=== PATIENT | male | born 1960 | race African-American/Black ===

== ENCOUNTER 2021-11-12 18:30 | Inpatient (IN) | payer OTHER ==
[2021-11-12] MEDS ORDERED: NALOXONE HCL 0.4 MG/ML VIAL ONE (18:39)
[2021-11-12 18:55] VITALS: BMI 26.2
[2021-11-12] MEDS ORDERED: NALOXONE HCL 0.4 MG/ML VIAL IVPUSH ONE (19:01)
[2021-11-12] MEDS ORDERED: LORazepam 2 MG/ML SDV VIAL IVPUSH ONE (19:48)
[2021-11-12 19:59] LABS: BASO % 0.6 % (0-2.0); EOS % 0.8 % (0-4.5); HEMOGLOBIN 13.5 GM/dL (11.7-16.9); LYMPH % 19.4 % (8-40); MCH 27.5 pg (25.7-33.7); MCHC 31.5 g/dl (32.0-35.9); MEAN CELL VOLUME 87.5 fl (80-96); MEAN PLT VOLUME 8.2 fl (7.5-11.1); MONO % 4.9 % (3.8-10.2); NEUT % 74.3 % (42.8-82.8); PLATELET COUNT 324 10^3/uL (134-434); RBC 4.91 M/mm3 (4.00-5.60); RDW 15.2 % (11.9-15.9); WHITE BLOOD COUNT 14.7 K/mm3 (4.0-10.0)
[2021-11-12 20:11] LABS: INR 0.97 (0.83-1.09); PROTHROMBIN TIME (PATIENT) 11.2 SEC (9.7-13.0)
[2021-11-12 20:20] LABS: CHLORIDE 104 mmol/L (98-107); SODIUM 139 mmol/L (136-145)
[2021-11-12 20:23] LABS: ALBUMIN 4.3 g/dl (3.4-5.0); ANION GAP 16 MMOL/L (8-16); CALCIUM 9.9 mg/dL (8.5-10.1); CO2 18 mmol/L (21-32)
[2021-11-12 20:24] LABS: GLUCOSE,RANDOM 155 mg/dL (74-106)
[2021-11-12 20:25] LABS: ACTIVATED PTT 18.4 SECONDS (25.2-36.5)
[2021-11-12 20:26] LABS: CREATININE 1.5 mg/dL (0.55-1.3); SGPT/ALT 21 U/L (13-61)
[2021-11-12 20:27] LABS: SGOT/AST 21 U/L (15-37)
[2021-11-12 20:28] LABS: CHOLESTEROL 200 mg/dL (50-200); TOT PROT 8.6 g/dl (6.4-8.2); TRIGLYCERIDES 178 mg/dL (0-150)
[2021-11-12 20:29] LABS: BILIRUBIN,TOTAL 0.5 mg/dL (0.2-1); LDL CHOLESTEROL (ONLY SJRH) 104 mg/dL (5-100)
[2021-11-12 20:30] LABS: ALK PHOS 74 U/L (45-117)
[2021-11-12 20:31] LABS: HDL CHOLESTEROL 59 mg/dL (40-60)
[2021-11-12 22:47] LABS: EPI CELLS 8 /uL (0-25.1); HYALINE CASTS 1 /uL (0-3.1); URINE APPEARANCE CLEAR; URINE BACTERIA 23 /uL (0-1359); URINE BILIRUBIN NEGATIVE (NEGATIVE); URINE COLOR YELLOW; URINE GLUCOSE (UA) NEGATIVE (NEGATIVE); URINE KETONE NEGATIVE (NEGATIVE); URINE LEUK ESTERASE NEGATIVE (NEGATIVE); URINE NITRITE NEGATIVE (NEGATIVE); URINE PROTEIN 1+ (NEGATIVE); URINE RBC 4 /uL (0-23.9); URINE UROBILINOGEN 0.2 mg/dL (0.2-1.0); URINE WBC 12 /uL (0-25.8)
[2021-11-12 22:55] LABS: METHADONE, UR NEGATIVE (NEGATIVE)
[2021-11-12 22:56] LABS: COCAINE, UR NEGATIVE (NEGATIVE); OPIATES, URI NEGATIVE (NEGATIVE); PHENCYCLIDINE,URINE NEGATIVE (NEGATIVE)
[2021-11-12 23:02] LABS: URINE AMPHETAMINES NEGATIVE (NEGATIVE); URINE BARBITURATES NEGATIVE (NEGATIVE); URINE BENZODIAZEPINES POSITIVE (NEGATIVE)
[2021-11-13] MEDS ORDERED: amLODIPine BESYLATE 2.5 MG TABLET (FP) PO ONE (00:59)
[2021-11-13] MEDS ORDERED: HEPARIN NA (PORCINE) 5,000 UNITS/ML 1ML VIAL SQ SCH (06:00)
[2021-11-13] MEDS ORDERED: HEPARIN NA (PORCINE) 5,000 UNITS/ML 1ML VIAL ONE (06:26)
[2021-11-13] MEDS ORDERED: amLODIPine BESYLATE 5 MG TABLET (FP) ONE (06:26)
[2021-11-13 06:45] LABS: BASO % 0.5 % (0-2.0); EOS % 0.4 % (0-4.5); HEMATOCRIT 38.2 % (35.4-49); HEMOGLOBIN 12.6 GM/dL (11.7-16.9); MCH 28.3 pg (25.7-33.7); MCHC 32.9 g/dl (32.0-35.9); MEAN CELL VOLUME 86.2 fl (80-96); MEAN PLT VOLUME 7.7 fl (7.5-11.1); MONO % 6.8 % (3.8-10.2); NEUT % 78.3 % (42.8-82.8); PLATELET COUNT 270 10^3/uL (134-434); RBC 4.43 M/mm3 (4.00-5.60); WHITE BLOOD COUNT 13.8 K/mm3 (4.0-10.0)
[2021-11-13 07:04] LABS: CALCIUM 9.3 mg/dL (8.5-10.1)
[2021-11-13 07:05] LABS: ALBUMIN 3.8 g/dl (3.4-5.0); BLOOD UREA NITROGEN 13.1 mg/dL (7-18)
[2021-11-13 07:07] LABS: PHOSPHOROUS 3.4 mg/dL (2.5-4.9)
[2021-11-13 07:08] LABS: CREATININE 1.2 mg/dL (0.55-1.3)
[2021-11-13 07:09] LABS: BILIRUBIN,TOTAL 1.2 mg/dL (0.2-1); TOT PROT 7.8 g/dl (6.4-8.2)
[2021-11-13 07:11] VITALS: TEMP 99
[2021-11-13] MEDS ORDERED: FUROSEMIDE 40 MG TABLET (FP) ONE (09:37)
[2021-11-13] MEDS ORDERED: amLODIPine BESYLATE 10 MG TABLET (FP) ONE (09:37)
[2021-11-13] MEDS ORDERED: SPIRONOLACTONE 25 MG TABLET ONE (09:38)
[2021-11-13] MEDS ORDERED: CLOPIDOGREL BISULFATE 75 MG TABLET (FP) ONE (09:38)
[2021-11-13] MEDS ORDERED: ENOXAPARIN NA (PORCINE) 40 MG/0.4 ML DISP.SYRIN SQ SCH (10:00)
[2021-11-13] MEDS ORDERED: SPIRONOLACTONE 25 MG TABLET PO SCH (10:00)
[2021-11-13] MEDS ORDERED: SACUBITRIL/VALSARTAN 49 MG-51 MG TABLET PO SCH (10:00)
[2021-11-13] MEDS ORDERED: CLOPIDOGREL BISULFATE 75 MG TABLET (FP) PO SCH (10:00)
[2021-11-13] MEDS ORDERED: amLODIPine BESYLATE 10 MG TABLET (FP) PO SCH (10:00)
[2021-11-13] MEDS ORDERED: ASPIRIN 81 MG CHEWABLE TABLETS PO SCH (10:00)
[2021-11-13] MEDS ORDERED: FUROSEMIDE 40 MG TABLET (FP) PO SCH (10:00)
[2021-11-13 11:20] VITALS: BP 138/98; PULSE 79; RESP 16
[2021-11-13] MEDS ORDERED: ATORVASTATIN CA 40 MG TABLET (FP) PO SCH (22:00)
== END 2021-11-13 11:33 | disposition home or self-care (01) | DRG 351 ==
LOC: JER 18:30 → JERBED 22:28
PROVIDERS: ADMIT Internal Medicine; ATTEND Nurse Practitioner Acute Care
DX: R29.898 Other symptoms and signs involving the musculoskeletal system (principal); I50.42 Chronic combined systolic (congestive) and diastolic (congestive) heart failure; I11.0 Hypertensive heart disease with heart failure; E78.5 Hyperlipidemia, unspecified; F10.20 Alcohol dependence, uncomplicated; R20.0 Anesthesia of skin; I25.10 Atherosclerotic heart disease of native coronary artery without angina pectoris; Z98.61 Coronary angioplasty status
CPT/HCPCS: 36415; 70450-TC; 70496-TC; 70498-TC; 70551-TC; 71045-TC-FY; 80053; 80061; 80307; 81003; 82550; 82553; 82962; 83036; 83735; 84100; 84484; 85025; 85610; 85730; 86850; 86900; 86901; 93005; 93010; 99291; 99292; C9803-CS; J1644; Q9967; U0003; U0005

== ENCOUNTER 2022-01-24 16:19 | Observation (INO) | payer OTHER ==
[2022-01-24] MEDS ORDERED: SODIUM CHLORIDE 1,000 ML IV SCH (16:30)
[2022-01-24 17:46] LABS: BASO % 0.6 % (0-2.0); EOS % 0.3 % (0-4.5); HEMATOCRIT 38.8 % (35.4-49); HEMOGLOBIN 12.5 GM/dL (11.7-16.9); LYMPH % 13.7 % (8-40); MCH 28.3 pg (25.7-33.7); MCHC 32.3 g/dl (32.0-35.9); MEAN CELL VOLUME 87.6 fl (80-96); MEAN PLT VOLUME 7.8 fl (7.5-11.1); MONO % 6.4 % (3.8-10.2); PLATELET COUNT 303 10^3/uL (134-434); RBC 4.43 M/mm3 (4.00-5.60); RDW 14.9 % (11.9-15.9); WHITE BLOOD COUNT 10.8 K/mm3 (4.0-10.0)
[2022-01-24 17:53] LABS: INR 1.17 (0.83-1.09); PROTHROMBIN TIME (PATIENT) 13.5 SEC (9.7-13.0)
[2022-01-24 17:56] LABS: ACTIVATED PTT 34.5 SECONDS (25.2-36.5)
[2022-01-24] MEDS ORDERED: LORazepam 2 MG/ML SDV VIAL IVPUSH ONE (18:02)
[2022-01-24] MEDS ORDERED: levETIRAcetam 500 MG/5 ML INJECTION VIAL IVPB ONE ×2 (18:03→18:04)
[2022-01-24 18:06] LABS: CALCIUM 9.3 mg/dL (8.5-10.1)
[2022-01-24 18:07] LABS: ALBUMIN 4.2 g/dl (3.4-5.0)
[2022-01-24 18:09] LABS: CREATININE 1.3 mg/dL (0.55-1.3)
[2022-01-24 18:11] LABS: TOT PROT 8.2 g/dl (6.4-8.2)
[2022-01-24 20:38] LABS: PH,URINE >= 9.0 (5.0-8.0); URINE APPEARANCE CLEAR; URINE BILIRUBIN NEGATIVE (NEGATIVE); URINE COLOR YELLOW; URINE GLUCOSE (UA) NEGATIVE (NEGATIVE); URINE KETONE NEGATIVE (NEGATIVE); URINE LEUK ESTERASE NEGATIVE (NEGATIVE); URINE NITRITE NEGATIVE (NEGATIVE); URINE PROTEIN NEGATIVE (NEGATIVE)
[2022-01-24] MEDS ORDERED: ASPIRIN 81 MG CHEWABLE TABLETS PO SCH (21:15)
[2022-01-24] MEDS ORDERED: ATORVASTATIN CA 80 MG TABLET (FP) PO SCH (22:00)
[2022-01-24] MEDS: CLOPIDOGREL BISULFATE 75 MG TABLET (FP) PO SCH (22:30)
[2022-01-24] MEDS ORDERED: CLOPIDOGREL BISULFATE 75 MG TABLET (FP) ONE ×2 (23:14)
[2022-01-24] MEDS ORDERED: ATORVASTATIN CA 80 MG TABLET (FP) ONE (23:14)
[2022-01-24] MEDS ORDERED: ASPIRIN 81 MG CHEWABLE TABLETS ONE (23:14)
[2022-01-25 02:43] VITALS: BMI 24.8
[2022-01-25] MEDS ORDERED: LORazepam 2 MG/ML SDV VIAL IVPUSH PRN ×2 (07:00→09:32)
[2022-01-25 08:08] LABS: COCAINE, UR NEGATIVE (NEGATIVE); METHADONE, UR NEGATIVE (NEGATIVE); OPIATES, URI NEGATIVE (NEGATIVE); URINE AMPHETAMINES NEGATIVE (NEGATIVE); URINE BARBITURATES NEGATIVE (NEGATIVE)
[2022-01-25 08:09] LABS: PHENCYCLIDINE,URINE NEGATIVE (NEGATIVE)
[2022-01-25 08:30] LABS: URINE BENZODIAZEPINES NEGATIVE (NEGATIVE)
[2022-01-25 09:54] LABS: INR 1.14 (0.83-1.09); PROTHROMBIN TIME (PATIENT) 13.1 SEC (9.7-13.0)
[2022-01-25 09:57] LABS: ACTIVATED PTT 31.8 SECONDS (25.2-36.5)
[2022-01-25 09:59] LABS: BASO % 0.4 % (0-2.0); EOS % 1.1 % (0-4.5); HEMATOCRIT 36.1 % (35.4-49); HEMOGLOBIN 11.6 GM/dL (11.7-16.9); LYMPH % 19.8 % (8-40); MCHC 32.3 g/dl (32.0-35.9); MEAN CELL VOLUME 86.8 fl (80-96); MEAN PLT VOLUME 7.9 fl (7.5-11.1); MONO % 7.7 % (3.8-10.2); PLATELET COUNT 298 10^3/uL (134-434); RBC 4.15 M/mm3 (4.00-5.60); RDW 14.9 % (11.9-15.9); WHITE BLOOD COUNT 11.6 K/mm3 (4.0-10.0)
[2022-01-25] MEDS: CLOPIDOGREL BISULFATE 75 MG TABLET (FP) PO SCH (10:03)
[2022-01-25] MEDS: levETIRAcetam 500 MG/5 ML INJECTION VIAL IVPB SCH ×2 (10:03→10:04)
[2022-01-25 10:11] LABS: ALBUMIN 3.7 g/dl (3.4-5.0); CALCIUM 9.4 mg/dL (8.5-10.1)
[2022-01-25 10:12] LABS: BLOOD UREA NITROGEN 14.3 mg/dL (7-18)
[2022-01-25 10:15] LABS: CREATININE 1.2 mg/dL (0.55-1.3); PHOSPHOROUS 3.2 mg/dL (2.5-4.9)
[2022-01-25 10:16] LABS: TOT PROT 7.4 g/dl (6.4-8.2)
[2022-01-25 15:26] VITALS: BP 117/83; PULSE 100; RESP 20; TEMP 98.1
== END 2022-01-25 14:30 | disposition home or self-care (01) ==
LOC: JER 16:19 → JERBED 20:16 → J4W 01-25 01:45
PROVIDERS: ADMIT Internal Medicine; ATTEND Internal Medicine
PROC: 3E033GC Introduction of Other Therapeutic Substance into Peripheral Vein, Percutaneous Approach (ICD-10-PCS; principal; 2022-01-24)
PROC: 3E033NZ Introduction of Analgesics, Hypnotics, Sedatives into Peripheral Vein, Percutaneous Approach (ICD-10-PCS; 2022-01-24)
DX: S01.552A Open bite of oral cavity, initial encounter (principal); I25.10 Atherosclerotic heart disease of native coronary artery without angina pectoris; I11.0 Hypertensive heart disease with heart failure; G45.9 Transient cerebral ischemic attack, unspecified; R29.810 Facial weakness; E78.5 Hyperlipidemia, unspecified; F10.10 Alcohol abuse, uncomplicated
CPT/HCPCS: 0241U-QW; 36415; 70450-TC; 70496-TC; 70498-TC; 70551-TC; 71045-TC-FY; 80053; 80061; 80307; 81003; 82962; 83036; 83735; 84100; 84443; 84484; 85025; 85610; 85730; 86850; 86900; 86901; 93005; 93010; 96374; 96375; 99291; G0378

== ENCOUNTER 2022-04-18 12:45 | Observation (INO) | payer OTHER ==
[2022-04-18] MEDS ORDERED: LORazepam 2 MG/ML SDV VIAL IVPUSH ONE (13:50)
[2022-04-18 14:34] LABS: BASO % 0.7 % (0-2.0); EOS % 1.2 % (0-4.5); HEMATOCRIT 40.1 % (35.4-49); HEMOGLOBIN 13.4 GM/dL (11.7-16.9); MCH 29.2 pg (25.7-33.7); MCHC 33.4 g/dl (32.0-35.9); MEAN CELL VOLUME 87.3 fl (80-96); MEAN PLT VOLUME 8.1 fl (7.5-11.1); MONO % 4.7 % (3.8-10.2); NEUT % 75.4 % (42.8-82.8); PLATELET COUNT 279 10^3/uL (134-434); RBC 4.59 M/mm3 (4.00-5.60); RDW 14.2 % (11.9-15.9); WHITE BLOOD COUNT 9.9 K/mm3 (4.0-10.0)
[2022-04-18 15:00] LABS: ALBUMIN 4.1 g/dl (3.4-5.0); BLOOD UREA NITROGEN 16.3 mg/dL (7-18); CALCIUM 9.9 mg/dL (8.5-10.1)
[2022-04-18 15:03] LABS: CREATININE 1.2 mg/dL (0.55-1.3)
[2022-04-18 15:05] LABS: BILIRUBIN,TOTAL 0.8 mg/dL (0.2-1); TOT PROT 8.6 g/dl (6.4-8.2)
[2022-04-18 18:56] LABS: BLOOD UREA NITROGEN 15.7 mg/dL (7-18); CALCIUM 9.9 mg/dL (8.5-10.1)
[2022-04-18 19:00] LABS: CREATININE 1.1 mg/dL (0.55-1.3)
[2022-04-18] MEDS: ATORVASTATIN CA 40 MG TABLET (FP) PO SCH (22:25)
[2022-04-18] MEDS: levETIRAcetam 500 MG TABLET (FP) PO SCH (22:25)
[2022-04-18] MEDS: SACUBITRIL/VALSARTAN 49 MG-51 MG TABLET PO SCH (22:25)
[2022-04-19 05:37] VITALS: BMI 27.3
[2022-04-19] MEDS: SACUBITRIL/VALSARTAN 49 MG-51 MG TABLET PO SCH ×2 (09:26→22:10)
[2022-04-19] MEDS: amLODIPine BESYLATE 10 MG TABLET (FP) PO SCH (09:26)
[2022-04-19] MEDS: levETIRAcetam 500 MG TABLET (FP) PO SCH ×2 (09:26→22:11)
[2022-04-19] MEDS: SPIRONOLACTONE 25 MG TABLET PO SCH (09:26)
[2022-04-19] MEDS: FUROSEMIDE 40 MG TABLET (FP) PO SCH (09:26)
[2022-04-19] MEDS: CLOPIDOGREL BISULFATE 75 MG TABLET (FP) PO SCH (09:26)
[2022-04-19] MEDS: ASPIRIN 81 MG CHEWABLE TABLETS PO SCH (09:26)
[2022-04-19] MEDS: ATORVASTATIN CA 40 MG TABLET (FP) PO SCH (22:11)
[2022-04-20] MEDS: ASPIRIN 81 MG CHEWABLE TABLETS PO SCH (09:10)
[2022-04-20] MEDS: FUROSEMIDE 40 MG TABLET (FP) PO SCH (09:13)
[2022-04-20] MEDS: levETIRAcetam 500 MG TABLET (FP) PO SCH ×2 (09:14→22:23)
[2022-04-20] MEDS: CLOPIDOGREL BISULFATE 75 MG TABLET (FP) PO SCH (09:14)
[2022-04-20] MEDS: SPIRONOLACTONE 25 MG TABLET PO SCH (09:15)
[2022-04-20 09:21] LABS: BLOOD UREA NITROGEN 17.4 mg/dL (7-18); CALCIUM 9.2 mg/dL (8.5-10.1)
[2022-04-20 09:21] LABS: CHOLESTEROL 141 mg/dL (50-200); TRIGLYCERIDES 140 mg/dL (0-150)
[2022-04-20] MEDS: SACUBITRIL/VALSARTAN 49 MG-51 MG TABLET PO SCH ×2 (09:21→22:23)
[2022-04-20] MEDS: amLODIPine BESYLATE 10 MG TABLET (FP) PO SCH (09:21)
[2022-04-20 09:22] LABS: LDL CHOLESTEROL (ONLY SJRH) 83 mg/dL (5-100)
[2022-04-20 09:24] LABS: HDL CHOLESTEROL 40 mg/dL (40-60)
[2022-04-20] MEDS ORDERED: INSULIN (NOVOLOG) ASPART 100 UNITS/ML 10ML VIAL ONE (18:50)
[2022-04-20] MEDS: ATORVASTATIN CA 40 MG TABLET (FP) PO SCH (22:23)
[2022-04-21 10:19] LABS: BASO % 0.6 % (0-2.0); EOS % 2.4 % (0-4.5); HEMATOCRIT 39.9 % (35.4-49); HEMOGLOBIN 13.3 GM/dL (11.7-16.9); LYMPH % 31.3 % (8-40); MCH 29.1 pg (25.7-33.7); MCHC 33.3 g/dl (32.0-35.9); MEAN CELL VOLUME 87.3 fl (80-96); MEAN PLT VOLUME 8.5 fl (7.5-11.1); MONO % 7.9 % (3.8-10.2); NEUT % 57.8 % (42.8-82.8); PLATELET COUNT 277 10^3/uL (134-434); RBC 4.57 M/mm3 (4.00-5.60); RDW 14.4 % (11.9-15.9); WHITE BLOOD COUNT 7.1 K/mm3 (4.0-10.0)
[2022-04-21] MEDS: CLOPIDOGREL BISULFATE 75 MG TABLET (FP) PO SCH (10:21)
[2022-04-21] MEDS: SPIRONOLACTONE 25 MG TABLET PO SCH (10:21)
[2022-04-21] MEDS: FUROSEMIDE 40 MG TABLET (FP) PO SCH (10:21)
[2022-04-21] MEDS: SACUBITRIL/VALSARTAN 49 MG-51 MG TABLET PO SCH (10:21)
[2022-04-21] MEDS: ASPIRIN 81 MG CHEWABLE TABLETS PO SCH (10:21)
[2022-04-21] MEDS: levETIRAcetam 500 MG TABLET (FP) PO SCH (10:21)
[2022-04-21] MEDS: amLODIPine BESYLATE 10 MG TABLET (FP) PO SCH (10:21)
[2022-04-21 10:39] LABS: CALCIUM 9.5 mg/dL (8.5-10.1)
[2022-04-21 10:41] LABS: ALBUMIN 4.3 g/dl (3.4-5.0); BLOOD UREA NITROGEN 19.4 mg/dL (7-18)
[2022-04-21 10:45] LABS: CREATININE 1.1 mg/dL (0.55-1.3); TOT PROT 8.5 g/dl (6.4-8.2)
[2022-04-21 14:56] VITALS: BP 116/78; PULSE 81; RESP 18; TEMP 98.3
== END 2022-04-21 17:19 | disposition home or self-care (01) ==
LOC: JER 12:45 → JERBED 16:45 → J8W 19:52
PROVIDERS: ADMIT Specialist; ATTEND Specialist
PROC: 3E033NZ Introduction of Analgesics, Hypnotics, Sedatives into Peripheral Vein, Percutaneous Approach (ICD-10-PCS; principal; 2022-04-18)
DX: G40.89 Other seizures (principal); I11.0 Hypertensive heart disease with heart failure; I50.9 Heart failure, unspecified
CPT/HCPCS: 36415; 70450-TC; 80048; 80053; 80061; 80177; 82607; 83880; 84443; 85025; 93005; 93010; 93225; 93226; 93306-TC; 96372; 99285-25; C9803-CS; G0378; U0003; U0005

== ENCOUNTER 2022-07-17 05:55 | Inpatient (IN) | payer OTHER ==
[2022-07-17 07:14] LABS: VENOUS BASE EXCESS -0.6 mmol/L (-2-2); VENOUS O2 SATURATION 44.5 % (70-80); VENOUS PCO2 56.8 mmHg (38-52); VENOUS PH 7.295 (7.310-7.410)
[2022-07-17] MEDS ORDERED: ASPIRIN 81 MG CHEWABLE TABLETS PO ONE (07:16)
[2022-07-17 07:17] LABS: BASO % 1.1 % (0-2.0); EOS % 2.8 % (0-4.5); HEMATOCRIT 38.1 % (35.4-49); HEMOGLOBIN 12.9 GM/dL (11.7-16.9); INR 1.18 (0.83-1.09); LYMPH % 32.7 % (8-40); MEAN CELL VOLUME 85.4 fl (80-96); MEAN PLT VOLUME 8.3 fl (7.5-11.1); MONO % 7.8 % (3.8-10.2); NEUT % 55.6 % (42.8-82.8); PLATELET COUNT 245 10^3/uL (134-434); PROTHROMBIN TIME (PATIENT) 13.7 SEC (9.7-13.0); RBC 4.46 M/mm3 (4.00-5.60); WHITE BLOOD COUNT 7.7 K/mm3 (4.0-10.0)
[2022-07-17] MEDS ORDERED: CLOPIDOGREL BISULFATE 75 MG TABLET (FP) PO ONE (07:19)
[2022-07-17 07:20] LABS: ACTIVATED PTT 32.9 SECONDS (25.2-36.5)
[2022-07-17 07:46] LABS: POTASSIUM 5.7 mmol/L (3.5-5.1)
[2022-07-17 07:48] LABS: CALCIUM 9.4 mg/dL (8.5-10.1); MAGNESIUM 1.5 mg/dL (1.8-2.4)
[2022-07-17 07:50] LABS: ALBUMIN 3.8 g/dl (3.4-5.0); BLOOD UREA NITROGEN 15.4 mg/dL (7-18)
[2022-07-17 07:52] LABS: CREATININE 1.3 mg/dL (0.55-1.3)
[2022-07-17 07:53] LABS: TOT PROT 7.8 g/dl (6.4-8.2)
[2022-07-17 07:55] LABS: BILIRUBIN,TOTAL 0.9 mg/dL (0.2-1)
[2022-07-17] MEDS ORDERED: ASPIRIN 81 MG CHEWABLE TABLETS ONE (07:58)
[2022-07-17] MEDS ORDERED: CLOPIDOGREL BISULFATE 75 MG TABLET (FP) ONE (07:58)
[2022-07-17 09:50] VITALS: BMI 28.4
[2022-07-17 10:38] LABS: POTASSIUM 4.8 mmol/L (3.5-5.1)
[2022-07-17 10:41] LABS: BLOOD UREA NITROGEN 14.3 mg/dL (7-18); CALCIUM 9.8 mg/dL (8.5-10.1)
[2022-07-17 10:45] LABS: CREATININE 1.2 mg/dL (0.55-1.3)
[2022-07-17] MEDS ORDERED: SPIRONOLACTONE 25 MG TABLET PO SCH (17:15)
[2022-07-17] MEDS ORDERED: amLODIPine BESYLATE 10 MG TABLET (FP) PO SCH (17:15)
[2022-07-17] MEDS ORDERED: CLOPIDOGREL BISULFATE 75 MG TABLET (FP) PO SCH (17:15)
[2022-07-17 18:49] VITALS: BP 127/84; PULSE 66; RESP 19; TEMP 98.6
[2022-07-17] MEDS ORDERED: ATORVASTATIN CA 40 MG TABLET (FP) PO SCH (22:00)
[2022-07-17] MEDS ORDERED: levETIRAcetam 250 MG TABLET PO SCH (22:00)
[2022-07-17] MEDS ORDERED: SACUBITRIL/VALSARTAN 97 MG-103 MG TABLET PO SCH (22:00)
== END 2022-07-17 20:25 | disposition left against medical advice (07) | DRG 58 ==
LOC: JER 05:55 → JERBED 08:30 → J4S 11:02
PROVIDERS: ADMIT Specialist; ATTEND Specialist
DX: R20.2 Paresthesia of skin (principal); I11.0 Hypertensive heart disease with heart failure; E78.5 Hyperlipidemia, unspecified; I25.10 Atherosclerotic heart disease of native coronary artery without angina pectoris; R20.0 Anesthesia of skin; I50.9 Heart failure, unspecified
CPT/HCPCS: 0241U-QW; 36415; 70450-TC; 70551-TC; 80048; 80053; 80061; 82803; 82962; 83036; 83735; 84484; 85025; 85610; 85730; 93005; 93010; 99285-25